=== PATIENT | female | born 1990 | race Caucasian/White ===

== ENCOUNTER 2017-02-01 17:40 | Emergency (ER) | payer OTHER ==
[~2017-02-01] VITALS: Ht 157.5 cm; Wt 68.8 kg
[~2017-02-01 17:40] MED LIST: CITA10TA49 PO; FEXO180T66 PO; LAMO100T12 PO; NORG1TAB55 PO; OMEP40CA30 PO; TRAZ150T43 PO; [UNRECOGNIZED DRUG - CODE] PO
--- OUTSIDE RECORDS SUMMARY | 2017-02-01 17:43 | XMS REPORT | Continuity of Care Document ---
Author Author [facility] Organization [facility] Address Unknown Phone Unavailable Support Name Relationship Address Phone ANGLE RODRIGUEZ DO Caregiver [facility] MEDICAL [facility] [address] [address] [place] [address] JUDSON LANDRY DO Caregiver [facility] [address] [place] [address] RODNEY CURTIS Caregiver [address] [place] [address] ASHIA CAZARES Next Of Kin [phone] [address] Insurance Providers Payer Name Policy Number Subscriber Name Relationship [facility] [id number] Ashia Cazares 05 Grandchild Problems Medical Problems Problem Onset Date Status Costochondritis Unknown Active Viral illness Unknown Active Costochondritis Unknown Active Medications Medication Dose Route Sig Days/Qty Instructions Order Date Discontinued Date Status Citalopram Hydrobromide 10 Mg PO DAILY 05/07/14 Active Lamotrigine 100 Mg PO DAILY 05/07/14 Active Omeprazole 40 Mg PO BEFORE BREAKFAST 05/07/14 Active Trazodone Hcl 75 Mg PO BEDTIME 05/07/14 Active Fexofenadine Hcl 180 Mg PO DAILY 05/07/14 Active Norgestimate-Ethinyl Estradiol 1 Each PO BEDTIME 05/07/14 Active Ibuprofen 600 Mg PO Every 8 Hours For PAIN 20 Qty 05/07/14 Active Social History Social History Problem Response Recorded Date/Time Smoking Status Never smoker 05/07/2014 7:10am Chewing Tobacco Status No 05/07/2014 7:10am Hx Substance Use No 05/07/2014 7:10am Hx Alcohol Use Y RARE 05/07/2014 7:10am Hospital Discharge Instructions No hospital discharge instructions. Plan of Care No plan of care. Functional Status Query Response Date Recorded Physical Hygiene Self May 07, 2014 7:10am Disabilities Visual May 07, 2014 7:10am Devices Used Glasses May 07, 2014 7:10am Dressing Self May 07, 2014 7:10am Ambulation Self May 07, 2014 7:10am Diet Self May 07, 2014 7:10am Mental Status Alert Oriented May 07, 2014 7:10am Disabilities Visual May 07, 2014 7:10am Devices Used Glasses May 07, 2014 7:10am Physical Hygiene Self May 07, 2014 7:10am Dressing Self May 07, 2014 7:10am Ambulation Self May 07, 2014 7:10am Diet Self May 07, 2014 7:10am Allergies, Adverse Reactions, Alerts Allergen Type Severity Reaction Status Last Updated No Known Allergies Active 05/07/14 Immunizations Name Given Type Hx Influenza Vaccination Y 06/28 Historical Hx Influenza Vaccination Y 06/28 Historical Vital Signs Acute Vital Signs Vital Response Date/Time Temperature (Fahrenheit) 98.5 deg F (96.8 - 99.1) Temperature (Calculated Celsius) 36.36929 degrees C (36.0 - 37.3) Pulse Rate (adult) 73 bpm (60 - 100) Respiratory Rate 20 breaths/min (10 - 20) O2 Sat by Pulse Oximetry 97 % (90 - 100) Blood Pressure 104/68 mm Hg Height 5 ft 2 in Weight 150 lb Body Mass Index 27.0 kg/m^2 Results Test Source Date Result Interp. Ref. Range Comments Basophils # (Auto) May 07, 2014 8:07am 0.0 T/MM3 N 0-0.2 Basophils (%) (Auto) May 07, 2014 8:07am 0.3 % N 0-2 D-Dimer May 07, 2014 8:07am 138 NG/ML N 0-230 <224 NG/ML=PRESUMPTIVE NEGATIVE FOR PE OR DVT>224 NG/ML=ADDITIONAL EVALUATION FOR PE OR DVT RECOMMENDED Eosinophils # (Auto) May 07, 2014 8:07am 0.1 T/MM3 N 0-0.5 Eosinophils (%) (Auto) May 07, 2014 8:07am 0.7 % N 0-4 Group A Streptococcus Screen May 07, 2014 7:30am Negative - Strep culture confirmation to follow Hematocrit May 07, 2014 8:07am 33.8 % L 36-46 Hemoglobin May 07, 2014 8:07am 10.7 GM/DL L 12-16 Lymphocytes # (Auto) May 07, 2014 8:07am 1.4 T/MM3 N 1-4.8 Lymphocytes (%) (Auto) May 07, 2014 8:07am 13.2 % L 23-45 Mean Corpuscular Hemoglobin May 07, 2014 8:07am 27.2 UUG N 26-34 Mean Corpuscular Hemoglobin Concent May 07, 2014 8:07am 31.7 GM/DL N 31 -37 Mean Corpuscular Volume May 07, 2014 8:07am 85.8 UM3 N 80-100 Mean Platelet Volume May 07, 2014 8:07am 11.4 UM3 N 9.4-12.4 Monocytes # (Auto) May 07, 2014 8:07am 1.5 T/MM3 H 0-0.8 Monocytes (%) (Auto) May 07, 2014 8:07am 14.1 % H 0-9.0 Neutrophils # (Auto) May 07, 2014 8:07am 7.5 T/MM3 N 1.8-7.7 Neutrophils (%) (Auto) May 07, 2014 8:07am 71.5 % H 33-66 Platelet Count May 07, 2014 8:07am 204 T/MM3 N 130-400 RDW Standard Deviation May 07, 2014 8:07am 45.3 FL N 36.9-50.2 Red Blood Count May 07, 2014 8:07am 3.94 M/MM3 L 4.00-5.20 Urine Bacteria January 12, 2011 1:35pm Trace H - Urine Bilirubin January 12, 2011 1:35pm Negative - Urine Blood January 12, 2011 1:35pm Negative - Urine Color January 12, 2011 1:35pm Yellow - Urine Glucose (UA) January 12, 2011 1:35pm Negative - Urine Ketones January 12, 2011 1:35pm Negative - Urine Leukocyte Esterase January 12, 2011 1:35pm 2+ H - Urine Nitrite January 12, 2011 1:35pm Negative - Urine Protein January 12, 2011 1:35pm Negative - Urine RBC January 12, 2011 1:35pm 1-3 /HPF - Urine Specific [place] January 12, 2011 1:35pm 1.010 L - Urine Squamous Epithelial Cells January 12, 2011 1:35pm Few - Urine Turbidity January 12, 2011 1:35pm Clear - Urine Urobilinogen January 12, 2011 1:35pm Normal EU/DL - Urine WBC January 12, 2011 1:35pm 1-3 /HPF - Urine pH January 12, 2011 1:35pm 8.0 - White Blood Count May 07, 2014 8:07am 10.5 T/MM3 N 4.5-11.0 Lab Scanned Report January 12, 2011 4:02pm LAB TEST FORM REQUEST [id number] - Immature Granulocyte # (Auto) May 07, 2014 8:07am 0.02 T/MM3 N 0.00- 0.03 Immature Granulocyte % (Auto) May 07, 2014 8:07am 0.2 % N 0.0-0.5 Wet Prep Vagina January 12, 2011 11:00am Procedures No known history of procedures. Encounters Encounter Location Date/Time Departed Emergency Room [facility] 05/07/14 7:00am Recent Diagnosis
[2017-02-01 17:44] VITALS: BP 120/73; PULSE 101; RESP 16; TEMP 98.2; O2SAT 97; Ht 157.5 cm; Wt 68.8 kg
[2017-02-01] MEDS ORDERED: PANT20TA13 PO (18:04)
[2017-02-01] MEDS ORDERED: LAMO100T68 PO (18:04)
[2017-02-01] MEDS ORDERED: RANI150T7 PO (18:04)
[2017-02-01] MEDS ORDERED: FLUT1DIS3 INH (18:04)
--- NOTE | 2017-02-01 18:06 | NUR ---
REPORT TO ABDOULAYE VERMA
--- NOTE | 2017-02-01 18:27 | ERPDOC ---
Departure Disposition Decision Date: Feb 01, 2017 Disposition Decision Time: 18:23 Disposition: 01 DISCHARGED HOME, SELF-CARE Impression Impression Impression: Primary Impression: Conjunctivitis of both eyes Condition: Stable Seen By: Mid-level only Patient Instructions: Conjunctivitis (ED) Problems/Meds/Labs Reviewed?: Yes Medications reviewed and manag: Yes Additional Instructions: YOUR SYMPTOMS ARE LIKELY DUE TO CONJUNCTIVITIS (PINK EYE) . WE ARE UNABLE TO DETERMINE IF THIS IS DUE TO AN ALLERGY, VIRUS OR BACTERIA. WE WILL BE TREATING YOU WITH AN ANTIBIOTIC TO COVER FOR A BACTERIAL INFECTION AND AN ANTI HISTAMINE EYE DROP . WE ARE ALSO RECOMMENDING THE USE OF ARTIFICIAL TEARS IN BETWEEN PRESCRIPTION EYE DROPS. DO NOT WEAR CONTACTS UNTIL CONDITION IS COMPLETELY RESOLVED. RECOMMEND FOLLOW UP WITH YOUR EYE DOCTOR IN 5 DAYS IF NOT IMPROVING. THE USE OF A DAILY ORAL ANTI HISTAMINE IS ALSO INDICATED. Follow up care ordered?: Yes Mental Status: Alert, Oriented Scripts Naphazoline HCl/Pheniramine (Naphcon-A Eye Drops) 15 Ml Drops 2 DROP OP TID for 7 Days, #1 BOTTLE Prov: ROJAS BOLANOS APRN 02/01/17 Polymyxin B Sulfate/Tmp (Polytrim Eye Drops) 100 Drop/10 Ml Drops 1 DROP OP Q3 HOURS for 5 Days, #1 BOTTLE Prov: ROJAS BOLANOS APRN 02/01/17 HPI - EENT General General Chief Complaint: Eye Problems Stated Complaint: POSS PINK EYE Time Seen by Provider: 18:15 Source: patient Exam Limitations: no limitations HPI - EENT General Initial Comments Patient presents with complaints of bilateral eye irritation, redness and excessive tearing, and crusting in the AM. Sx started on Monday. Patient wears contacts and states has seasonal allergies but has not worn contacts for one week. Patient denies any exposure to chemicals or foreign bodies. Denies any recent irritation from her contacts but has not worn contacts for a week. Occurred At: home Onset/Timing: Gradual Duration: other (3 days) Location: eye (R), eye (L) Associated Symptoms: DENIES: cough, fever, sinus infection, sore throat Quality: other (burning, irritation, itching) Allergies: Coded Allergies: No Known Allergies (Unverified , 02/01/17) Past History Past Medical History Pt denies signifigant PMH Hx Echocardiogram: No Psychological: depression Surgical History Denies Surgeries Family History Family PMH: FOUND: other Vaccines Hx Influenza Vaccination: Yes (06/28) Review of Systems Constitutional Constitutional: see HPI, DENIES: chills, fever Eyes General: burning, exudate, itching, other (light sensitivity), see HPI, watering Lids/Accessories: see HPI, DENIES: erythema, swelling Vision: other (occasional blurry vision) ENMT Ears: DENIES: drainage, pain Hearing: DENIES: tinnitus Balance: DENIES: vertigo Sinuses: rhinorrhea, DENIES: pain Mouth/Throat: DENIES: painful swallowing, sore throat Cardiovascular Cardiac: DENIES: chest pain, dyspnea on exertion Rhythm/Rate: DENIES: irregular beat, palpitations, tachycardia Pulmonary Respiratory: DENIES: cough, dyspnea, pleuritic chest pain GI Upper Abdomen: DENIES: nausea, pain Lower Abdomen: DENIES: diarrhea, pain General: DENIES: dysuria, frequency, urgency Musculoskeletal General: DENIES: cramps, pain, weakness Integumentary Skin: DENIES: itching, rash Neurological General: DENIES: headache, numbness, weakness Hematologic/Lymphatic Hematologic/Lymphatic: DENIES: anemia Allergic/Immunological Allergic/Immunoligical: DENIES: hives, sneezing All other Systems All Other Systems: Reviewed and Negative Physical Exam General General Nourishment: well nourished, well developed, appears stated age, no acute distress, adult Vitals and Pain First Documented Vital Signs Date Time Temp Pulse Resp B/P Pulse Ox O2 Delivery O2 Flow Rate FiO2 02/01/17 17:44 98.2 101 16 120/73 97 Room Air Weight: Kilograms: 68.800 Height (feet): 5 Height (inches): 2.00 Triage Pain Scale: Normal Exams: Head: Normocephalic w/o trauma Neck: Full range of motion, without adenopathy, JVD, bruits or thyromegaly Chest/Resp: Clear all du, with good airflow, and symmetry bilaterally CV: Regular rate and rhythm, without murmur or gallop, Pulses 2+ all extremities, capillary refill, <2 seconds all ext., no pedal edema noted Lymphatic: No lymphadenopathy, or lymphedema noted Musculoskeletal: No tenderness, or deformity noted, good range of motion, all extremities Integumentary: No rashes, hives, or bruising noted, hair and nails, without abnormality Neurologic: Patient is alert, and oriented, cranial nerves, motor/sensory/ cerebellar, exams w/o gross deficits, to observation Psychiatric: Patient exhibits, appropriate attention, emotion and affect Eyes (brief) Eyes Brief: found: EOMI, PERRL, not found: foreign body, scleral icterus Eyes Abnormal Movement: NOT FOUND: nystagmus Comments bilateral sclera are injected with injected conjunctiva. No exudate noted at this time. Differential Diagnoses Considering: Conjunctival Foreign Body, Conjunctivitis, Corneal Foreign Body, Intraocular Foreign Body, Sty Progress Progress Progress Visual acuity OD 20/30, OS 20/25 and OD 20/20 corrected with glasses. ROJAS BOLANOS APRN Feb 01, 2017 18:27
[2017-02-01] MEDS ORDERED: NAPH15DR OP (18:33)
[2017-02-01] MEDS ORDERED: POLY10DR OP (18:33)
--- NOTE | 2017-02-01 18:39 | NUR ---
DEPART PT IS DISCHARGED AT THIS TIME, INSTRUCTIONS ARE REVIEWED AND UNDERSTANDING IS VOICED. PT LEAVES AMBULATORY WITH HER MOTHER.
--- OUTSIDE RECORDS SUMMARY | 2017-02-01 18:44 | XMS REPORT | Continuity of Care Document ---
Author Author [facility] Organization [facility] Address Unknown Phone Unavailable Support Name Relationship Address Phone ANGLE RODRIGUEZ DO Caregiver [facility] [address] [place] [address] JUDSON LANDRY DO Caregiver [facility] [address] [place] [address] RODNEY CURTIS Caregiver [address] [place] [address] ASHIA CAZARES Next Of Kin [phone] [address] Insurance Providers Payer Name Policy Number Subscriber Name Relationship [facility] [id number] Ashia Cazares 05 Grandchild Problems Medical Problems [...] F (96.8 - 99.1) Temperature (Calculated Celsius) 36.25393 degrees C (36.0 - 37.3) Pulse Rate [...] 2011 1:35pm 1-3 /HPF - Urine Specific [place] January 12, 2011 1:35pm 1.010 L - [...] 12, 2011 4:02pm LAB TEST FORM REQUEST [id number] - Immature Granulocyte # (Auto) May 07, 2014 8:07am 0.02 T/MM3 N 0.00- 0.03 Immature Granulocyte % (Auto) May 07, 2014 8:07am 0.2 % N 0.0-0.5 Wet Prep Vagina January 12, 2011 11:00am Procedures No known history of procedures. Encounters Encounter Location Date/Time Departed Emergency Room [facility] 05/07/14 7:00am Recent Diagnosis
== END 2017-02-01 18:39 | disposition home or self-care (01) ==
LOC: ED 17:40
DX: H10.9 Unspecified conjunctivitis (principal)